=== PATIENT | female | born 1955 | race African-American/Black ===

== ENCOUNTER 2019-12-23 10:00 | Emergency (ER) | payer OTHER ==
[~2019-12-23] VITALS: Ht 167.6 cm; Wt 136.1 kg
[2019-12-23 10:47] LABS: ABSOLUTE MONOCYTES 0.5 thou/uL (0.0-1.2); ABSOLUTE NEUTROPHILS 3.3 thou/uL (1.6-8.1); BASOPHILS 0.5 %; HEMATOCRIT 28.7 % (37.0-47.0); HEMOGLOBIN 9.5 gm/dL (12.0-15.0); LYMPHOCYTES 20.4 %; MCH 23.1 pg (26.0-34.0); MCHC 33.1 g/dL (28.0-37.0); MCV 69.8 fL (80.0-100.0); MONOCYTES 11.1 %; MPV 9.2 fl. (7.2-11.1); NUCLEATED RBCS 0 /100WBC; PLATELET COUNT* 239 thou/uL (150-400); RBC 4.12 mil/uL (4.20-5.00); RDW-CV 16.5 % (10.5-14.5); WBC 4.8 thou/uL (4.0-11.0)
[2019-12-23 10:57] LABS: CALCIUM 8.7 mg/dL (8.5-10.1); CREATININE 1.2 mg/dL (0.6-1.3); POTASSIUM 4.1 mmol/L (3.5-5.1)
[2019-12-23 11:01] LABS: ALBUMIN 2.9 g/dL (3.4-5.0); TOTAL BILIRUBIN 0.7 mg/dL (<0.1-1.0); TOTAL PROTEIN 7.6 g/dL (6.4-8.2)
[2019-12-23] MEDS ORDERED: ZPAK PO (11:11)
[2019-12-23 11:26] VITALS: BP 119/66
[2019-12-23 11:26] LABS: MICROCYTES 2+; PLATELET ESTIMATE ADEQUATE
--- NOTE | 2019-12-23 14:30 | EKG ---
[place] [address] ELECTROCARDIOGRAM REPORT Name: MELINDA CARLOS Room: [facility]#: [id number] Admission: 12/23/19 Attend Phys: Discharge: 12/23/19 Date of : 59 Date of Service: 12/23/19 1036 Report #: [id number] THIS REPORT FOR: //name// [facility] ED Test Date: 2019-12-23 Test Time: 10:36:38 Pat Name: MELINDA CARLOS Department: Room: Gender: F [employer] Installer: CCD : 1955 Requested By: Fabián Ghosh Order Number: [id number] MD: Fausto Vogel Measurements Intervals Ducor Rate: 87 P: 46 DC: 135 QRS: -24 QRSD: 85 T: 51 QT: 336 QTc: 404 Interpretive Statements Sinus rhythm Borderline left axis deviation RSR' in V1 or V2, right VCD or RVH No previous ECG available for comparison Electronically Signed On 12-23-2019 14:30:47 CDT by Fausto Vogel [email or web address] <ELECTRONICALLY SIGNED> By: Fausto Vogel MD, FACC 12/23/19 1430 1036 1036 Fausto Vogel MD, [facility] /EPI
== END 2019-12-23 11:57 | disposition home or self-care (01) ==
LOC: M.ERS 10:00
PROVIDERS: Emergency Medicine Emergency Medical Services
DX: U07.1 COVID-19 (principal); Z90.710 Acquired absence of both cervix and uterus